=== PATIENT | male | born 1960 | race Caucasian/White ===

== ENCOUNTER 2016-09-17 15:21 | Emergency (ER) | payer MEDICARE, OTHER ==
[2016-09-17 18:27] LABS: BASO % 0.4 % (0.2-1.2); EOS % 0.3 % (0.8-7.0); GRAN # 4.5 10_X3_uL (1.8-5.4); GRAN % 60.2 % (34.0-67.9); HEMATOCRIT 38.7 % (40-51); HEMOGLOBIN 13.3 g/dL (13.7-17.5); LYMPH # 1.8 10_X3_uL (1.3-3.6); LYMPH % 24.4 % (21.8-53.1); MEAN CORPUSCULAR HEMOGLOBIN 32.5 pg (27.0-33.0); MEAN CORPUSCULAR HGB CONC 34.4 g/dL (32.0-36.0); MEAN CORPUSCULAR VOLUME 94.6 fL (79-92); MONO # 1.1 10_X3_uL (0.3-0.8); MONO % 14.7 % (5.3-12.2); PLATELET COUNT 139 x10_3/uL (163-337); RED BLOOD COUNT 4.09 x10_6/uL (4.6-6.1); RED CELL DISTRIBUTION WIDTH 12.2 % (11.6-14.4); WHITE BLOOD COUNT 7.4 x10_3/uL (4.2-9.1)
[2016-09-17 18:45] LABS: ALBUMIN 3.9 gm/dL (3.4-5.0); ALKALINE PHOSPHATASE 77 U/L (50-136); ALT/SGPT 21 U/L (7.53-40.17); AST/SGOT 22 U/L (6.66-35.34); BILIRUBIN,TOTAL 0.41 mg/dL (0.0-1.0); BLOOD UREA NITROGEN 14 mg/dL (7-18); CALCIUM 8.9 mg/dL (8.7-10.7); CARBON DIOXIDE 23 mmol/L (21-32); CREATINE KINASE 45 U/L (35-232); CREATININE 0.8 mg/dL (0.6-1.3); GLUCOSE,RANDOM 120 mg/dL (70-99); POTASSIUM 3.7 mmol/L (3.5-5.1); SODIUM 135 mmol/L (136-145); TOTAL PROTEIN 7.8 gm/dL (6.4-8.2)
== END 2016-09-17 20:20 | disposition home or self-care (01) ==
LOC: ER 15:21
PROVIDERS: Emergency Medicine
DX: J44.0 Chronic obstructive pulmonary disease with (acute) lower respiratory infection (principal); J20.9 Acute bronchitis, unspecified; J06.9 Acute upper respiratory infection, unspecified; B37.0 Candidal stomatitis; F32.9 Major depressive disorder, single episode, unspecified; F17.210 Nicotine dependence, cigarettes, uncomplicated; Z79.899 Other long term (current) drug therapy; Z79.1 Long term (current) use of non-steroidal anti-inflammatories (NSAID)
CPT/HCPCS: 36415; 71010; 80053; 82550; 82553; 83605; 85025; 86738; 87040; 87400; 94664; 96365; 96375; 99070; 99283-25; 99284; J2930